=== PATIENT | female | born 1960 | race African-American/Black ===

== ENCOUNTER → 2020-08-28 | Day surgery (SDC) | payer BC ==
[~2020-08-28] MED LIST: ECHINACEA125 MG PO; FAMOTIDINE20 MG PO; FISH OIL 1,0001 EAC2 PO; LIDOCAINE HCL 2% LOCAL INJ 5 ML SDV VIAL INJ ONE; LORATADINE10 M1 PO; MAGNESIUM PO; MONTELUKAST SOD10 MG PO; OMEPRAZOLE40 MG PO; POVIDONE IODINE 0.05% 0.05 % ML PO ONE; PROPOFOL IV EMULSION 10 MG/ML 20 ML VIAL ONE; RANITIDINE HCL150 MG PO; SIMVASTATIN20 MG PO; VITAMIN C500 MG PO; VITAMIN D3 PO
[2020-08-28 14:42] VITALS: BP 110/76
== END | disposition home or self-care (01) ==
LOC: OR 12:37
PROVIDERS: ATTEND Internal Medicine Gastroenterology
DX: K29.70 Gastritis, unspecified, without bleeding (principal); D12.3 Benign neoplasm of transverse colon; K29.80 Duodenitis without bleeding; K44.9 Diaphragmatic hernia without obstruction or gangrene; R13.10 Dysphagia, unspecified; K57.30 Diverticulosis of large intestine without perforation or abscess without bleeding; I89.0 Lymphedema, not elsewhere classified; K64.8 Other hemorrhoids; J30.2 Other seasonal allergic rhinitis; Z88.6 Allergy status to analgesic agent; Z91.040 Latex allergy status; Z01.810 Encounter for preprocedural cardiovascular examination; Z01.812 Encounter for preprocedural laboratory examination; Z20.822 Contact with and (suspected) exposure to COVID-19
CPT/HCPCS: 43239; 45385; 93005; J2001; J2704; U0002; 45378